=== PATIENT | male | born 1935 | race Caucasian/White ===

== ENCOUNTER 2018-11-06 06:54 | Day surgery (SDC) | payer OTHER ==
[~2018-11-06] VITALS: Ht 190.5 cm; Wt 97.1 kg
[~2018-11-06 06:54] MED LIST: ASPI81TA27 PO; FINA5TAB4 PO; PRAV20TA3 PO; TERA5CAP42 PO
[2018-11-06] MEDS ORDERED: IODIXANOL 320MG/ML 100ML BTL IV ONE ×2 (07:12→08:07)
[2018-11-06] MEDS ORDERED: LIDOCAINE 2%HCL (LOCAL ANESTH.) INJ 20ML MDV ONE (07:13)
[2018-11-06] MEDS ORDERED: fentaNYL CITRATE 100 MCG/2 ML VL ONE (07:41)
[2018-11-06] MEDS ORDERED: ANGIOMAX 250 MG VIAL IV ONE (07:41)
[2018-11-06] MEDS ORDERED: VERAPAMIL 2.5MG/ML INJ 2ML VIAL IV ONE (07:41)
[2018-11-06] MEDS ORDERED: SODIUM CHL 0.9% 0 ML ONE (07:42)
[2018-11-06] MEDS ORDERED: MIDAZOLAM HCL 1MG/1ML-2 ML VIAL ONE (07:42)
[2018-11-06] MEDS ORDERED: HEPARIN SODIUM (PORCINE) 5000 UNITS/ML 1ML VIAL ONE (08:20)
== END 2018-11-06 11:45 | disposition home or self-care (01) ==
LOC: CATH 06:54
PROVIDERS: ATTEND Internal Medicine
DX: I25.10 Atherosclerotic heart disease of native coronary artery without angina pectoris (principal); I48.91 Unspecified atrial fibrillation; I10 Essential (primary) hypertension; N40.0 Benign prostatic hyperplasia without lower urinary tract symptoms; Z98.890 Other specified postprocedural states; Z79.82 Long term (current) use of aspirin; Z79.899 Other long term (current) drug therapy
CPT/HCPCS: 93005; 93454; A6257; C1769; C1894; J1644; J2250; J3010; J7030; Q9967; 99152